=== PATIENT | female | born 1965 | race Caucasian/White ===

== ENCOUNTER 2021-03-17 05:32 | Day surgery (SDC) | payer MEDICAID ==
[2021-03-12 14:58] LABS: BASOPHILS % (AUTO) 0.4 % (0-1); EOSINOPHILS # (AUTO) 0.1 X10'3 (0-0.9); EOSINOPHILS % (AUTO) 1.7 % (0-6); LYMPHOCYTES # (AUTO) 3.3 X10'3 (1.1-4.8); LYMPHOCYTES % (AUTO) 38.8 % (21-51); MEAN CORPUSCULAR HEMOGLOBIN 31.2 PG (27.0-31.0); MEAN CORPUSCULAR HGB CONC 34.3 g/dL (33.0-36.5); MEAN CORPUSCULAR VOLUME 90.9 FL (78-98); MONOCYTES # (AUTO) 0.5 X10'3 (0-0.9); MONOCYTES % (AUTO) 5.6 % (2-12); NEUTROPHILS # (AUTO) 4.5 X10'3 (1.8-7.7); NEUTROPHILS % (AUTO) 53.5 % (42-75); PRE OP HEMATOCRIT 39.5 % (35.0-45.0); PRE OP HEMOGLOBIN 13.5 g/dL (12.0-16.0); PRE OP PLATELET COUNT 317 X10'3 (140-440); RED BLOOD COUNT 4.34 X10'6 (4.20-5.60); RED CELL DISTRIBUTION WIDTH 12.6 % (11.5-14.5)
[2021-03-12 15:13] LABS: ALBUMIN 4.2 G/DL (3.4-5.0); ALBUMIN/GLOBULIN RATIO 1.1 (1.1-1.5); ALKALINE PHOSPHATASE 115 IU/L (46-116); BLOOD UREA NITROGEN 15 MG/DL (7-18); CALCIUM 9.5 MG/DL (8.5-10.1); CHLORIDE 101 MMOL/L (99-107); CREATININE 0.88 MG/DL (0.40-0.90); PRE OP ANION GAP 9 (8-16); PRE OP AST 53 U/L (10-37); PRE OP BILIRUB, TOTAL 0.4 MG/DL (0.0-1.0); PRE OP GLUCOSE 123 MG/DL (70-104); PRE OP POTASSIUM 3.6 MMOL/L (3.4-5.1); PRE OP SODIUM 140 MMOL/L (135-145); TOTAL CARBON DIOXIDE 30.4 MMOL/L (24-32); TOTAL PROTEIN 8.1 G/DL (6.4-8.2); eGFR 67 ML/MIN
[2021-03-12 15:15] LABS: PRE OP ALT 145 U/L (30-65)
[~2021-03-17] VITALS: Ht 162.6 cm; Wt 65.5 kg
[2021-03-17] VITALS (8 sets, daily range): BP systolic 115–129; BP diastolic 68–80
[~2021-03-17 05:32] MED LIST: ALPR0.5T8 PO; ASCO-134 PO; CITA-311; ELDE1CAP PO; ERGO400C PO; OMEG1CAP2 PO; PROBIOTICS PO; TUMERIC PO; cefazolin/dext.iso 2gm/50ml IV ONE; famotidine 20mg tablet PO ONE; ringers solution, lacted 1,000 ML IV SCH
[2021-03-17] MEDS ORDERED: BUPIVAcaine/PF 2.5 mg/ml (0.25%) 30ml vial ONE (06:56)
[2021-03-17] MEDS ORDERED: LIDOcaine 1% 30ml preserv. free vial ONE (06:57)
[2021-03-17] MEDS ORDERED: scopolamine 1mg/72 hr patch TD ONE (07:10)
[2021-03-17] MEDS ORDERED: labetalol 20mg/4ml (5mg/ml) syringe IV PRN (07:25)
[2021-03-17] MEDS ORDERED: ringers solution, lacted 1,000 ML IV SCH (07:25)
[2021-03-17] MEDS ORDERED: acetaminophen 1,000mg/100ml IV 100 ML IV PRN (07:25)
[2021-03-17] MEDS ORDERED: meperidine/PF 25mg/ml syringe IV PRN ×3 (07:25)
[2021-03-17] MEDS ORDERED: ondansetron/PF 4mg/2ml inj IV PRN (07:25)
[2021-03-17] MEDS ORDERED: hydrALAZINE 20mg/ml inj. IV PRN (07:25)
[2021-03-17] MEDS ORDERED: proCHLORperazine 10 MG/2 ml inj IV PRN (07:25)
[2021-03-17] MEDS ORDERED: morphine 2 MG/ML inj. syringe IV PRN (07:25)
[2021-03-17] MEDS ORDERED: morphine 4 MG/ML inj SYRINge IV PRN (07:25)
[2021-03-17] MEDS ORDERED: midazolam 1 mg/ML 2ml injection ONE (07:32)
[2021-03-17] MEDS ORDERED: fentaNYL /PF 50mcg/ml 5ml ampule ONE (07:33)
[2021-03-17] MEDS ORDERED: propofol inj 20 ML IV ONE (09:02)
[2021-03-17] MEDS ORDERED: LIDOcaine 2% (20mg/ml) 5ml vial ONE (09:02)
[2021-03-17] MEDS ORDERED: rocuronium 10mg/ml inj IV ONE (09:02)
[2021-03-17] MEDS ORDERED: 0.9 % SODIUM CHLORIDE 10 ML VIAL ONE (09:03)
[2021-03-17] MEDS ORDERED: dexamethasone sod phosphate 4mg/ml inj. ONE (09:03)
[2021-03-17] MEDS ORDERED: ondansetron/PF 4mg/2ml inj ONE (09:03)
[2021-03-17] MEDS ORDERED: ePHEDrine 50MG/ML INJ. ONE (09:03)
--- NOTE | 2021-03-17 09:31 | NUR ---
Received from OR via , accompanied by Anesthesiologist DR ALDANA and report given by Anesthesiolgist. AWAKENS TO VOICE. VITALS STABLE. DRESSINGS DI. SCHUYLER PAIN. ABD SOFT.
[2021-03-17] MEDS ORDERED: HYDROcodone/acetaminophen 5mg/325mg tablet PO PRN (09:35)
--- NOTE | 2021-03-17 10:41 | NUR ---
AWAKE AND ORIENTED. VITALS STABLE. DRESSING DI. STATES PAIN IMPROVING. HOME WITH A FRIEND AT THIS TIME.
== END 2021-03-17 10:41 | disposition home or self-care (01) ==
LOC: PAS 05:32
PROVIDERS: ATTEND Surgery
DX: K41.90 Unilateral femoral hernia, without obstruction or gangrene, not specified as recurrent (principal); K42.9 Umbilical hernia without obstruction or gangrene; G43.909 Migraine, unspecified, not intractable, without status migrainosus; G47.00 Insomnia, unspecified; K21.9 Gastro-esophageal reflux disease without esophagitis; F43.10 Post-traumatic stress disorder, unspecified; F41.1 Generalized anxiety disorder; F32.9 Major depressive disorder, single episode, unspecified; Z79.899 Other long term (current) drug therapy; Z20.822 Contact with and (suspected) exposure to COVID-19; Z90.710 Acquired absence of both cervix and uterus; Z98.890 Other specified postprocedural states; Z88.8 Allergy status to other drugs, medicaments and biological substances; Z87.891 Personal history of nicotine dependence
CPT/HCPCS: 36415; 49585; 49659; 80053; 82948; 85025; 87635; 93005; C1781; C9803; J0131; J0690; J1100; J2175; J2250; J2405; J2704; J3010; J3490; J7030; J7120; S2900; U0003; U0005; Z7506; Z7508; Z7512; A4215; A4618

== ENCOUNTER 2024-08-10 10:31 | Emergency (ER) | payer MEDICAID ==
[~2024-08-10] VITALS: Ht 162.6 cm; Wt 58.3 kg
[~2024-08-10 10:31] MED LIST changes: -cefazolin/dext.iso 2gm/50ml IV ONE; -famotidine 20mg tablet PO ONE; -ringers solution, lacted 1,000 ML IV SCH
[2024-08-10 11:03] LABS: BASOPHILS % (AUTO) 0.3 % (0-1); EOSINOPHILS % (AUTO) 12.7 % (0-6); HEMOGLOBIN 14.3 g/dl (12.0-16.0); LYMPHOCYTES # (AUTO) 2.6 X10'3 (1.1-4.8); LYMPHOCYTES % (AUTO) 31.6 % (21-51); MEAN CORPUSCULAR HEMOGLOBIN 30.6 PG (27.0-31.0); MEAN CORPUSCULAR HGB CONC 34.1 g/dL (33.0-36.5); MEAN CORPUSCULAR VOLUME 89.7 FL (78-98); MONOCYTES # (AUTO) 0.8 X10'3 (0-0.9); MONOCYTES % (AUTO) 9.2 % (2-12); NEUTROPHILS # (AUTO) 3.8 X10'3 (1.8-7.7); NEUTROPHILS % (AUTO) 46.2 % (42-75); PLATELET COUNT 279 X10'3 (140-440); RED BLOOD COUNT 4.68 X10'6 (4.20-5.60); RED CELL DISTRIBUTION WIDTH 13.1 % (11.5-14.5); WHITE BLOOD COUNT 8.2 X10'3 (4.5-11.0)
[2024-08-10 11:19] LABS: ALANINE AMINOTRANSFERASE 54 U/L (12-78); ALBUMIN/GLOBULIN RATIO 1.2 (1.1-1.5); ALKALINE PHOSPHATASE 88 IU/L (46-116); ANION GAP 7 (8-16); ASPARTATE AMINO TRANSFERASE 28 U/L (10-37); BILIRUBIN,TOTAL 0.4 MG/DL (0.1-1.0); BLOOD UREA NITROGEN 15 MG/DL (7-18); BUN/CREATININE RATIO 23.4 (10.0-20.0); CALCIUM 9.2 MG/DL (8.5-10.1); CHLORIDE 102 MMOL/L (99-107); CREATININE 0.64 MG/DL (0.40-0.90); GLUCOSE 105 MG/DL (70-104); LIPASE 33 U/L (16-77); SODIUM 139 MMOL/L (135-145); TOTAL CARBON DIOXIDE 29.8 MMOL/L (24-32); TOTAL PROTEIN 7.4 G/DL (6.4-8.2); eCRCL 83 ML/MIN; eGFR > 90 ML/MIN
[2024-08-10 11:23] LABS: BILIRUBIN,URINE NEGATIVE (Neg); CLARITY,URINE CLEAR (Clear); COLOR,URINE STRAW (Yellow); GLUCOSE, URINE NEGATIVE (Neg); KETONES,URINE NEGATIVE (Neg); LEUKOCYTE ESTERASE ,URINE NEGATIVE (Neg); NITRITES, URINE NEGATIVE (Neg); OCCULT BLOOD,URINE NEGATIVE (Neg); PH,URINE 7.5 (4.8-8.0); PROTEIN,URINE NEGATIVE (Neg); UROBILINOGEN,URINE 0.2 E.U/dL (0.2-1.0)
[2024-08-10 11:24] LABS: UA COLLECTION TYPE VOIDED
[2024-08-10 11:25] LABS: URINE HCG NEGATIVE (NEG)
--- NOTE | 2024-08-10 11:29 | Physician Documentation ---
History of Present Illness Chief Complaint: Abdominal Pain Stated Complaint: ABD AND BACK PAIN Time Seen by MD: 11:29 Primary Medical Doctor: santos Mode of Arrival: POV HPI 59-year-old female presenting with groin pain She tells me that over the past couple of weeks she has been having sharp pain in her left groin and left lower abdomen. It comes and goes, sometimes is severe. Over the past day she has had more generalized abdominal pain that radiates up to her bilateral flanks. Nothing seems to make the pain better. She does report some associated nausea today. She has a history of a femoral hernia repair in the left side several years ago. She is concerned this could be related. She does have some tenderness in the area around her hernia but no bulge or new external changes. She talk to her primary doctor and did have an ultrasound performed but has not seen the results yet. She denies any fevers, chills, vomiting, dysuria hematuria, or vaginal symptoms. No diarrhea, constipation or blood in her stool. Medication Reconciliation Allergies: Coded Allergies: No Known Drug Allergies (Verified Allergy, Unknown, 03/13/21) epinephrine (Unverified Adverse Reaction, Mild, TACHYCARDIA, 02/09/12) VERIFIED WITH DR. RY LAY DDS VIA PHONE. Scheduled Ascorbic Acid (Ascorbic Acid), Unknown Dose PO DAILY, (Reported) Citalopram Hydrobromide (Celexa), 10 MG TWICE PER WEEK, (Reported) Elderberry Fruit and Flower (Black Elderberry 575 mg Cap), Unknown Dose PO DAILY, (Reported) Ergocalciferol (Vitamin D), Unknown Dose PO DAILY, (Reported) [place]-3 Fatty Acids/Fish Oil (Fish Oil 1,000 mg Capsule), Unknown Dose PO DAILY, (Reported) [Probiotics], 1 TAB PO DAILY, (Reported) [Tumeric], Unknown Dose PO DAILY, (Reported) Scheduled PRN Alprazolam (Alprazolam), 1 TAB PO DAILY PRN for anxiety, (Reported) Review of Systems Constitutional: Denies: fever Gastrointestinal: Reports: abdominal pain, nausea; Denies: vomiting, diarrhea, constipated Physical Exam Vital Signs: Temperature: 97.6, Source: Temporal, Heart Rate: 74, Respiratory Rate: 18, BP: 125/78, Pulse Oximetry: 99, Weight: 58.300 Oxygen Flow Rate: 0 Physical Exam General: This is a pleasant and mildly uncomfortable appearing middle-aged woman HEENT: Atraumatic, oropharynx is moist Heart: Regular rate and rhythm, normal-appearing peripheral perfusion Lungs: normal work of breathing, normal oxygen saturation on room air Abdomen: Soft, nondistended. The patient does have tenderness on palpation in the left groin region without a palpable hernia. She also has significant tenderness on palpation in the left lower quadrants. Mild discomfort on palpation across the upper abdomen. No rebound or guarding Neuro: Alert and oriented, no focal deficits Psychiatric: Appears uncomfortable but is cooperative with exam Progress Results/Orders Results/Orders Orders - TRACEY DALTON MD Urinalysis, Cult If Indicated (08/10/24 10:37) Completed Orders - TRACEY DALTON MD Hcg, Ur Ql (08/10/24 10:37) Cbc/Diff (08/10/24 10:37) BMP (08/10/24 10:37) Lipase (08/10/24 10:37) CMP (08/10/24 10:37) Vital Signs 08/10/24 08/10/24 08/10/24 10:33 11:09 11:12 Temp 97.6 Pulse 81 74 Resp 15 18 B/P (MAP) 141/83 125/78 (94) Pulse Ox 100 99 O2 Flow Rate 0 Laboratory Tests Test 08/10/24 10:46 08/10/24 10:58 White Blood Count 8.2 Red Blood Count 4.68 Hemoglobin 14.3 Hematocrit 42.0 Mean Corpuscular Volume 89.7 Mean Corpuscular Hemoglobin 30.6 Mean Corpuscular Hemoglobin Concent 34.1 Red Cell Distribution Width 13.1 Platelet Count 279 Mean Platelet Volume 8.0 Neutrophils (%) (Auto) 46.2 Lymphocytes (%) (Auto) 31.6 Monocytes (%) (Auto) 9.2 Eosinophils (%) (Auto) 12.7 H Basophils (%) (Auto) 0.3 Neutrophils # (Auto) 3.8 Lymphocytes # (Auto) 2.6 Monocytes # (Auto) 0.8 Eosinophils # (Auto) 1.0 H Basophils # (Auto) 0.0 CBC Comment Sodium Level 139 Potassium Level 4.0 Chloride Level 102 Carbon Dioxide Level 29.8 Anion Gap 7 L Blood Urea Nitrogen 15 Creatinine 0.64 Estimated GFR/1.73 m2 > 90 BUN/Creatinine Ratio 23.4 H Glucose Level 105 H Calcium Level 9.2 Total Bilirubin 0.4 Aspartate Amino Transf (AST/SGOT) 28 Alanine Aminotransferase (ALT/SGPT) 54 Alkaline Phosphatase 88 Total Protein 7.4 Albumin 4.0 Globulin 3.4 Albumin/Globulin Ratio 1.2 Lipase 33 Chemistry Comments Urine HCG, Qualitative Negative Urine Comment EKG/XRAY/CT/US/VASC/MRI CT : Impression I personally reviewed the CT scan, and this shows no kidney stone, no obvious inguinal or femoral hernia, no inflammatory changes to the colon Medical Decision Making Additional Comments Differential includes hernia, complication of past hernia surgery, scar tissue pain, kidney stone, ovarian cyst, diverticulitis Assessment The patient presents with several weeks of left groin pain, around the area of her hernia surgery. On exam there was no evidence of a recurrent hernia or overlying infection. Labs are grossly unremarkable including urinalysis with no sign of infection. CT scan shows no new hernia or other complication. No other dangerous problems including no kidney stone or inflammatory process. She was reassured, and will continue with symptomatic treatment and outpatient follow-up. Departure Time of Disposition: 14:10 Disposition: 01 HOME / SELF CARE / HOMELESS Impression: Primary Impression: Left groin pain Condition: Improved Referrals: NO PRIMARY CARE PROVIDER (PCP) Education Educated: Patient Educated regarding: diagnosis, need for follow up Signature Scribe Signature: na Attestation: TRACEY Palmer MD August 10, 2024 11:29
[2024-08-10] MEDS: ondansetron/PF 4mg/2ml inj IV ONE (11:52)
[2024-08-10] MEDS: ketorolac trometh 15mg/ml vial 15 MG/ML ML IV ONE (11:52)
[2024-08-10] MEDS ORDERED: iohexol 300mg/ml 100ml inj. ONE (13:17)
[2024-08-10 13:49] VITALS: BP 109/69; PULSE 85; RESP 16; TEMP 97.6; O2SAT 98
--- NOTE | 2024-08-10 13:51 | RADIOLOGY REPORT ---
Exam: CT CT ABDOMEN PELVIS W/ IV CONTRAST History: LLQ pain, hx femoral hernia surg TECHNIQUE: Multiple contiguous axial CT images of the abdomen and pelvis were obtained with intraveno us contrast. The images were reformatted to generate coronal and sagittal reconstructions. 100 cc of Omnipaque 350 contrast was injected intravenously. All CT scans at this medical facility are performed using dose modulation techniques as appropriate t o a performed exam including the following:Automated exposure control was utilized; adjustment of the MA and/or KV according to patient size; and use of iterative reconstruction technique. Radiation Dose Information: CT Dose: CTDI volume is 15 mGy. Dose-length product is 748 mGy*cm Comparison: None FINDINGS: The liver, gallbladder, pancreas, kidneys, adrenal glands, and spleen appear within normal limits. There is no evidence of abdominal lymphadenopathy. There is no free fluid or free air. The stomach grossly appears unremarkable. The small and large bowel loops demonstrate normal caliber and distribution. A normal appearing appendix is seen in the right lower quadrant abdomen. The abdominal aorta and IVC appear within normal limits. The bladder appears within normal limits the degree of distention. Pelvic organ is grossly unremarkab le. There is no evidence of a pelvic mass or lymphadenopathy. There is no free fluid collection. Lung bases are clear. There is no acute osseous abnormality. There is no evidence of abdominal wall hernia. IMPRESSION: 1. There is no acute process in the abdomen and pelvis. HS:Y
== END 2024-08-10 14:26 | disposition home or self-care (01) ==
LOC: ER 10:32
DX: R10.32 Left lower quadrant pain (principal); Z88.8 Allergy status to other drugs, medicaments and biological substances; Z79.899 Other long term (current) drug therapy
CPT/HCPCS: 36415; 74177; 80053; 81003; 81025; 83690; 85025; 96374; 96375; 99285; J1885; J2405; Q9967